=== PATIENT | male | born 1940 | race Caucasian/White ===

== ENCOUNTER 2021-05-29 12:59 | Emergency (ER) | payer MEDICARE ==
[2021-05-29 13:44] VITALS: TEMP 98.3
[2021-05-29 15:11] LABS: Basophils % (A) 1 %; Eosinophils # (A) 0.2 k/uL (0-0.7); Eosinophils % (A) 2 %; HCT 49.1 % (39.0-53.0); HGB 16.4 gm/dL (13.0-17.5); Lymphocytes % (A) 24 %; MCH 31.1 pg (25.0-35.0); MCHC 33.4 g/dL (31.0-37.0); MCV 93.1 fL (80.0-100.0); Mean Platelet Volume 7.9; Monocytes # (A) 0.4 k/uL (0-1.0); Monocytes % (A) 5 %; Neutrophils # (A) 5.4 k/uL (1.3-7.7); Neutrophils % (A) 66 %; Platelet Count 113 k/uL (150-450); RBC 5.28 m/uL (4.30-5.90); WBC 8.2 k/uL (3.8-10.6)
[2021-05-29 15:18] LABS: Albumin 4.5 g/dL (3.5-5.0); Calcium 9.8 mg/dL (8.4-10.2); Potassium 4.4 mmol/L (3.5-5.1); Total Bilirubin 0.7 mg/dL (0.2-1.3); Total Protein 7.2 g/dL (6.3-8.2)
--- NOTE | 2021-05-29 15:26 | ED ---
General Adult HPI - General Chief complaint: Recheck/Abnormal Lab/Rx Stated complaint: low heart rate Time Seen by Provider: 05/29/21 13:40 Source: patient, RN notes reviewed, old records reviewed Mode of arrival: ambulatory Limitations: no limitations - History of Present Illness Initial comments: This is an 80-year-old male presents emergency department because he went to the doctor's office and they didn't EKG and his heart rate was at 58 may thought that was too slow so since emergency department. Patient states he initially went to the urgent care because he had some redness on his right forearm he thought it might be infected mosquito bite. Patient denies any fever chills. Patient states he always has a bad reaction mosquito bites or any other bug bites. Patient states when he was there he told him he's been feeling tired because he hasn't slept much because he can scratch the mosquito bites all night. Was at this point and they did an EKG in his heart rate was 58% emergency department. Patient denies any chest pain palpitations difficulty breathing or shortness of breath per patient denies any fever chills or cough per patient denies any abdominal pain patient is not any nausea vomiting or diarrhea. Patient denies any other symptoms at this time. - Related Data Previous Rx's Medication Instructions Recorded predniSONE [Deltasone] 40 mg PO DAILY #8 tab 05/29/21 Allergies Allergy/AdvReac Type Severity Reaction Status Date / Time No Known Allergies Allergy Verified 05/29/21 13:44 Review of Systems ROS Statement: Those systems with pertinent positive or pertinent negative responses have been documented in the HPI. ROS Other: All systems not noted in ROS Statement are negative. 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 Past Psychological History: No Psychological Hx Reported Smoking Status: Never smoker Past Alcohol Use History: None Reported Past Drug Use History: None Reported General Exam - General Exam Comments Initial Comments: GENERAL: Patient is well-developed and well-nourished. Patient is nontoxic and well- hydrated and is in mild distress. ENT: Neck is soft and supple. No significant lymphadenopathy is noted. Oropharynx is clear. Moist mucous membranes. Neck has full range of motion without eliciting any pain. EYES: The sclera were anicteric and conjunctiva were pink and moist. Extraocular movements were intact and pupils were equal round and reactive to light. Eyelids were unremarkable. PULMONARY: Unlabored respirations. Good breath sounds bilaterally. No audible rales rhonchi or wheezing was noted. CARDIOVASCULAR: There is a regular rate and rhythm without any murmurs gallops or rubs. ABDOMEN: Soft and nontender with normal bowel sounds. SKIN: Right forearm area of mild redness and warmth NEUROLOGIC: Patient is alert and oriented x3. Cranial nerves II through XII are grossly intact. Motor and sensory are also intact. Normal speech, volume and content. Symmetrical smile. MUSCULOSKELETAL: Patient has erythema to the right forearm that is warm and mildly swollen consistent with an insect bite. LYMPHATICS: No significant lymphadenopathy is noted PSYCHIATRIC: Normal psychiatric evaluation. Limitations: no limitations Course Vital Signs 05/29/21 05/29/21 13:39 14:28 Temperature 98.3 F Pulse Rate 62 64 Respiratory 17 18 Rate Blood Pressure 169/97 161/98 O2 Sat by Pulse 61 L 98 Oximetry Medical Decision Making - Medical Decision Making EKG shows sinus rhythm at 60 bpm [place] interval 280 QRSs 84 Q-T intervals 412 QTC is 412 per patient's EKG shows occasional PAC. - Lab Data Result diagrams: 05/29/21 15:01 05/29/21 15:01 Lab Results 05/29/21 05/29/21 Range/Units 15:01 15:01 WBC 8.2 (3.8-10.6) k/uL RBC 5.28 (4.30-5.90) m/uL Hgb 16.4 (13.0-17.5) gm/dL Hct 49.1 (39.0-53.0) % MCV 93.1 (80.0-100.0) fL MCH 31.1 (25.0-35.0) pg MCHC 33.4 (31.0-37.0) g/dL RDW 14.0 (11.5-15.5) % Plt Count 113 L (150-450) k/uL MPV 7.9 Neutrophils % 66 % Lymphocytes % 24 % Monocytes % 5 % Eosinophils % 2 % Basophils % 1 % Neutrophils # 5.4 (1.3-7.7) k/uL Lymphocytes # 2.0 (1.0-4.8) k/uL Monocytes # 0.4 (0-1.0) k/uL Eosinophils # 0.2 (0-0.7) k/uL Basophils # 0.0 (0-0.2) k/uL Sodium 140 (137-145) mmol/L Potassium 4.4 (3.5-5.1) mmol/L Chloride 108 H (98-107) mmol/L Carbon Dioxide 22 (22-30) mmol/L Anion Gap 10 mmol/L BUN 18 (9-20) mg/dL Creatinine 1.17 (0.66-1.25) mg/dL Est GFR (CKD-EPI)AfAm 67 (>60 ml/min/1.73 sqM) Est GFR (CKD-EPI)NonAf 58 (>60 ml/min/1.73 sqM) Glucose 99 (74-99) mg/dL Calcium 9.8 (8.4-10.2) mg/dL Total Bilirubin 0.7 (0.2-1.3) mg/dL AST 37 (17-59) U/L ALT 31 (4-49) U/L Alkaline Phosphatase 78 (38-126) U/L Total Protein 7.2 (6.3-8.2) g/dL Albumin 4.5 (3.5-5.0) g/dL Disposition Clinical Impression: Insect bite Disposition: HOME SELF-CARE Condition: Good Instructions (If sedation given, give patient instructions): Insect Bite or Sting (ED) Additional Instructions: Patient could take Benadryl when necessary for itching Prescriptions: predniSONE [Deltasone] 40 mg PO DAILY #8 tab Is patient prescribed a controlled substance at d/c from ED?: No Referrals: Prosper Sue MD [Primary Care Provider] - 1-2 days Time of Disposition: 15:26
[2021-05-29 15:46] VITALS: BP 166/87; PULSE 60; RESP 20
== END 2021-05-29 15:46 | disposition home or self-care (01) ==
LOC: EC 12:59
DX: S50.861A Insect bite (nonvenomous) of right forearm, initial encounter (principal); E78.5 Hyperlipidemia, unspecified; K21.9 Gastro-esophageal reflux disease without esophagitis; W57.XXXA Bitten or stung by nonvenomous insect and other nonvenomous arthropods, initial encounter
CPT/HCPCS: 36415; 80053; 85025; 93005; 99283